=== PATIENT | female | born 1995 | race Two or more races ===

== ENCOUNTER 2023-06-07 07:10 | Emergency (ER) | payer BC ==
[~2023-06-07] VITALS: Ht 160 cm; Wt 72.6 kg
[2023-06-07 10:19] LABS: HEMATOCRIT 41.6 % (36.0-45.00); HEMOGLOBIN 14.3 g/dL (12.0-15.00); MEAN CELL VOLUME 89.5 fL (80.00-100.00); MEAN CORPUSCULAR HEMOGLOBIN 30.8 pg (27.00-32.0); MEAN CORPUSCULAR HGB CONC 34.4 g/dl (32.0-36.0); PLATELET COUNT 259 K/uL (150-450); RED BLOOD COUNT 4.65 M/uL (4.00-6.00); RED CELL DISTRIBUTION WIDTH 12.9 % (11.5-14.5)
[2023-06-07 10:59] LABS: CALCIUM 9.3 mg/dL (8.5-10.1); CREATININE SERUM 0.77 mg/dL (0.55-1.02); GFR 90.61; POTASSIUM 3.75 mEq/L (3.5-5.1)
== END 2023-06-07 13:57 | disposition home or self-care (01) ==
LOC: ER 07:11
PROVIDERS: General Practice
DX: A05.0 Foodborne staphylococcal intoxication (principal); E86.0 Dehydration; Z20.822 Contact with and (suspected) exposure to COVID-19